=== PATIENT | female | born 2000 ===

== ENCOUNTER 2024-04-01 22:05 | Inpatient (IN) | payer OTHER, MEDICAID ==
[~2024-04-01 22:05] MED LIST: Bupivacaine 0.25% HCL 30 ML VIAL ONE; Bupivacaine HCl 0.5%/Epinephrine 1:200,000/PF 30 ml Vial ONE
[2024-04-01] MEDS ORDERED: hydrALAZINE 20 MG/ML VIAL SLOW IVP PRN ×2 (22:08→22:29)
[2024-04-01] MEDS ORDERED: HYDROcodone/Acetaminophen 5/325 mg Tablet PO PRN ×2 (22:29)
[2024-04-01] MEDS ORDERED: Tranexamic Acid 1,000 MG/10 ML VIAL IVP PRN (22:29)
[2024-04-01] MEDS ORDERED: Lidocaine 1% (PF) 30 ML VIAL SC PRN (22:29)
[2024-04-01] MEDS ORDERED: Methylergonovine 0.2 MG/ML VIAL IM PRN (22:29)
[2024-04-01] MEDS ORDERED: Acetaminophen 500 MG TAB PO PRN (22:29)
[2024-04-01] MEDS ORDERED: fentaNYL 50 mcg/mL 1 mL Vial SLOW IVP PRN (22:29)
[2024-04-01] MEDS ORDERED: Misoprostol 200 MCG TAB PR PRN (22:29)
[2024-04-01] MEDS ORDERED: Promethazine HCl 25 MG/ML VIAL IM PRN (22:29)
[2024-04-01] MEDS ORDERED: Ibuprofen 800 MG TAB PO PRN (22:29)
[2024-04-01] MEDS ORDERED: Lactated Ringer's 1,000 ML IV SCH (22:30)
[2024-04-01] MEDS ORDERED: Oxytocin 30 units/NS 500 ML 500 ML IV SCH (22:30)
[2024-04-01 23:29] LABS: Hematocrit 33.9 % (34.9-44.5); Hemoglobin 12.2 g/dL (12.0-15.5); Mean Corpuscular Volume 91.6 fL (81.6-98.3); Mean Platelet Volume 10.3 fL (7.4-10.4); Platelet Count 250 10x3/uL (150-450); White Blood Cell (WBC) Count 11.9 10x3/uL (3.5-10.5)
[2024-04-01 23:42] LABS: HBsAg Index 0.14 S/CO (0-0.99); Hep B Surf Ag - L&D Non-Reactive S/CO (NonReactive)
[2024-04-01 23:43] LABS: Syphilis Antibody Nonreactive (Nonreactive); Syphilis Antibody Index 0.03 S/CO (<1.00 Non-Reactive)
[2024-04-02] MEDS: Ondansetron PF 4 MG/2 ML Vial IVP PRN (02:57)
[2024-04-02] MEDS: fentaNYL/Ropivacaine Epidural 100 ML ONE (04:44)
[2024-04-02] MEDS ORDERED: Lactated Ringer's 500 ML IV PRN (04:58)
[2024-04-02] MEDS ORDERED: diphenhydrAMINE 50 MG/ML VIAL IVP PRN (04:58)
[2024-04-02] MEDS ORDERED: ePHEDrine Sulfate 50 MG/10 ML VIAL SLOW IVP PRN (04:58)
[2024-04-02] MEDS ORDERED: Moisturizing Cream (Eucerin) 113 GM JAR TOP PRN (04:58)
[2024-04-02] MEDS ORDERED: Naloxone HCl 0.4 mg/ml Vial IVP PRN ×2 (04:58)
[2024-04-02] MEDS ORDERED: Acetaminophen 325 MG TAB PO PRN (04:58)
[2024-04-02] MEDS ORDERED: Promethazine HCl 25 MG/ML VIAL IM PRN (04:58)
[2024-04-02] MEDS ORDERED: Ondansetron PF 4 MG/2 ML Vial IVP PRN ×2 (04:58→14:10)
[2024-04-02] MEDS ORDERED: fentaNYL 2 mcg/Ropivacaine 0.2% Epidural 100 ML CADD EPIDURAL SCH (05:00)
[2024-04-02] MEDS ORDERED: Communication Order-Pharmacy FS SCH (05:00)
[2024-04-02] MEDS: Oxytocin 30 units/NS 500 ML 500 ML IV SCH (06:57)
[2024-04-02 07:42] VITALS: BMI 23.0
[2024-04-02] MEDS ORDERED: Preparation H Ointment 28 GM TUBE PR PRN (14:10)
[2024-04-02] MEDS ORDERED: Boostrix 0.5 ML (Tdap) VIAL (>/=7 yrs of age) IM ONE (14:10)
[2024-04-02] MEDS ORDERED: Benzocaine-Menthol 82.5 ML CAN TOP PRN (14:10)
[2024-04-02] MEDS ORDERED: Oxytocin 30 units/NS 500 ML 500 ML IV SCH (14:10)
[2024-04-02] MEDS ORDERED: hydrALAZINE 20 MG/ML VIAL SLOW IVP PRN (14:10)
[2024-04-02] MEDS ORDERED: Bisacodyl 10 MG SUPP PR PRN (14:10)
[2024-04-02] MEDS ORDERED: HYDROcodone/Acetaminophen 5/325 mg Tablet PO PRN ×2 (14:10)
[2024-04-02] MEDS ORDERED: diphenhydrAMINE 25 MG CAP PO PRN (14:10)
[2024-04-02] MEDS ORDERED: Milk Of Magnesia 30 ML UDCUP PO PRN (14:10)
[2024-04-02] MEDS ORDERED: Lanolin Ointment 7 GM TUBE TOP PRN (14:10)
[2024-04-02] MEDS: Ibuprofen 800 MG TAB PO SCH (15:28)
[2024-04-02] MEDS: Ferrous Sulfate 325 MG TAB PO SCH (19:28)
[2024-04-02] MEDS: Docusate 100 MG CAP PO SCH (21:36)
[2024-04-03] MEDS: Prenatal Vitamin 1 TAB PO SCH (09:39)
[2024-04-04 07:54] VITALS: BP 108/58; TEMP 98.4
== END 2024-04-04 15:30 | disposition home or self-care (01) | DRG 807 ==
LOC: CSHLD/OP 22:05 → CSHLD 23:07 → CSHPED 04-02 14:15
PROVIDERS: ADMIT Obstetrics & Gynecology; ATTEND Obstetrics & Gynecology
PROC: 10E0XZZ Delivery of Products of Conception, External Approach (ICD-10-PCS; principal; 2024-04-02)
PROC: 0HQ9XZZ Repair Perineum Skin, External Approach (ICD-10-PCS; 2024-04-02)
DX: O48.0 Post-term pregnancy (principal); Z37.0 Single live birth; Z3A.40 40 weeks gestation of pregnancy; O70.0 First degree perineal laceration during delivery
CPT/HCPCS: 36415; 51702; 85027; 86780; 86850; 86900; 86901; 87340; 99285; J0665; J2405; J2590